=== PATIENT | female | born 1950 | race Caucasian/White ===

== ENCOUNTER 2018-11-26 07:53 | Day surgery (SDC) | payer MEDICARE, MEDICAID ==
[~2018-11-26 07:53] MED LIST: ACETAMINOPHEN 500 MG TABLET PO ONE; CEFAZOLIN 2 Gram 2 GM/50 ML BAG IVPB ONE; CELECOXIB 100 MG CAPSULE PO ONE; FAMOTIDINE 20MG TABLET PO ONE; METOCLOPRAMIDE 10 MG TABLET PO ONE; SCOPOLAMINE 1 PATCH TDSY TD ONE; VANCOMYCIN 1GM/200ML PREMIX 1 GM/200 ML PIGGYBACK IVPB ONE
[2018-11-26] MEDS ORDERED: PROPOFOL 10 MG/ML VIAL IV ONE (07:54)
[2018-11-26] MEDS ORDERED: DEXAMETHASONE 4 MG/ML 1ML VIAL IVP ONE (07:54)
[2018-11-26] MEDS ORDERED: LIDOCAINE 2% MDV (20MG/ML) 20ML VIAL IV ONE (07:54)
[2018-11-26] MEDS ORDERED: MIDAZOLAM HCL 2MG/2ML VIAL IV ONE (07:54)
[2018-11-26] MEDS ORDERED: ROPIVACAINE HCL (NAROPIN) /PF 5MG/ML 20ML VIAL IV ONE (07:54)
[2018-11-26 08:11] LABS: ABSOLUTE NEUTROPHIL COUNT 4.61; BASO % 0.9 % (0-6); EOS % 9.4 % (0-6); GRAN % 51.8 % (47-80); HEMATOCRIT 42.2 % (35.0-47.0); HEMOGLOBIN 12.9 gm/dl (11.6-16.0); LYMPH % 31.6 % (16-45); MEAN CELL VOLUME 86.8 fl (81-97); MEAN CORPUSCULAR HEMOGLOBIN 26.5 pg (27-33); MEAN CORPUSCULAR HGB CONC 30.6 g/dl (32-36); MEAN PLATELET VOLUME 11.1 fl (7.4-10.4); MONO % 6.3 % (0-9); PLATELET COUNT 223 K/uL (130-400); RED BLOOD COUNT 4.86 M/uL (3.80-5.40); RED CELL DISTRIBUTION WIDTH 16.3 % (11.5-14.5); WHITE BLOOD COUNT W/O DIFF 8.9 K/uL (4.2-12.2)
[2018-11-26] MEDS ORDERED: METOCLOPRAMIDE 10 MG TABLET PO PRN (08:17)
[2018-11-26] MEDS ORDERED: ACETAMINOPHEN 325 MG TAB PO PRN (08:17)
[2018-11-26] MEDS ORDERED: MAGNESIUM HYDROXIDE 30 ML UDC PO PRN (08:17)
[2018-11-26] MEDS ORDERED: AL HYDROX/MAG HYDROX 30ML UD PO PRN (08:17)
[2018-11-26] MEDS ORDERED: TRAMADOL HCL 50 MG TABLET PO PRN ×2 (08:17)
[2018-11-26] MEDS ORDERED: PROMETHAZINE HCL 25 MG TABLET PO PRN (08:17)
[2018-11-26] MEDS ORDERED: ACETAMINOPHEN W/ CODEINE 300MG/30MG TABLET PO PRN ×2 (08:17)
[2018-11-26] MEDS ORDERED: HYDROMORPHONE HCL 2 MG/ML VIAL IM PRN (08:17)
[2018-11-26] MEDS ORDERED: ONDANSETRON 4 MG ODT TABLET SL PRN (08:17)
[2018-11-26] MEDS ORDERED: HYDROCODONE/APAP 5/325MG TABLET PO PRN (08:17)
[2018-11-26] MEDS ORDERED: ACETAMINOPHEN W/ CODEINE 300MG/60MG TABLET PO PRN (08:17)
[2018-11-26] MEDS ORDERED: KETOROLAC 30 MG/ML VIAL IVP PRN (08:17)
[2018-11-26] MEDS ORDERED: DIPHENHYDRAMINE HCL 25 MG CAPSULE PO PRN (08:17)
[2018-11-26] MEDS ORDERED: NALOXONE 0.4 MG/1 ML VIAL IVP PRN (08:17)
[2018-11-26] MEDS ORDERED: BISACODYL 10 MG SUPP RC PRN (08:17)
[2018-11-26] MEDS ORDERED: 0.9 % SODIUM CHLORIDE 1000ML 1,000 ML IV ONE (08:40)
[2018-11-26 08:52] LABS: ABO GROUP O; ANTIBODY SCREEN NEGATIVE (NEGATIVE); RH TYPE NEGATIVE
[2018-11-26] MEDS ORDERED: TRANEXAMIC ACID 1,000 MG/10 ML ML IV ONE (10:42)
[2018-11-26] MEDS ORDERED: BUPIVACAINE 0.5% W/EPI MPF 30 ML VIAL SQ ONE (10:42)
[2018-11-26] MEDS ORDERED: TRANEXAMIC ACID 1,000 MG/10 ML ML IU ONE (10:42)
[2018-11-26] MEDS ORDERED: BUPIVACAINE LIPOSOME 266MG/20ML VIAL SQ ONE (10:42)
[2018-11-26] MEDS ORDERED: RINGERS SOLUTION,LACTATED 1,000 ML IV ONE (10:44)
[2018-11-26] MEDS ORDERED: NITROGLYCERIN 0.4MG SL TABLET #25 BTL SL PRN (12:24)
[2018-11-26] MEDS ORDERED: DEXTROSE 5 % AND 0.9 % NACL 1,000 ML IV PRN (12:30)
[2018-11-26] MEDS ORDERED: VANCOMYCIN HCL 500 MG in 0.9 % SODIUM CHLORIDE 100ML 100 ML IVPB SCH (13:00)
[2018-11-26] MEDS: ANORO (UMECLIDINIUM & VILANTEROL) 62.5MCG/25MCG INH IH SCH (13:19)
[2018-11-26] MEDS: GABAPENTIN 100 MG CAPSULE PO SCH ×2 (15:10→21:35)
--- NOTE | 2018-11-26 15:16 | Rehab Evaluation ---
Patient Information - Patient Information Diagnosis: L TKA revision Ordered Treatment: PT Evaluate and Treat Status: Initial Evaluation Surgery: Yes (L knee revision) Date of Surgery: 11/26/18 Past Medical/Surgical Hx: PAST MEDICAL/SURGICAL HISTORY Past Surgical History BILAT KNEE REPLACEMENTS HYST BLADDER LIFT TONSILS CTR RIGHT CARDIAC STENT 2017 X'S 1 SEVERAL HEART CATHS PMH - Respiratory Hx Bronchitis Yes: 2 WEEKS AGO RESOLVED W ABX AND STEROIDS Hx Chronic Obstructive Yes: CONTROLLED WITH INHALERS Pulmonary Disease (COPD) Hx Sleep Apnea No: HAD TESTING NEGATIVE Hx of URI Yes: RECENT BRONCHITIS Hx of SOB Yes: "ALWAYS" Hx of Oxygen Therapy Yes: 2-3 LITERS AT NIGHT PMH - Cardiovascular Hx Abnormal EKG Yes Hx Cardiac Catheterization Yes: SEVERAL Hx Chest Pain Yes: FREQUENTLY LAST NITRO 11-20-18 RELEIVED W 1 "HAPPENS WHEN I GET UPSET" Hx Congestive Heart Failure Yes Hx Edema Yes Hx Hypertension Yes: FAIR CONTROL WITH MEDS Hx Pacemaker/Defibrillator Yes: SEVERAL Hx Coronary Artery Disease Yes Hx Coronary Stent Yes: 2017 X'S 1 Exercise Tolerance Poor Hx Transient Ischemic Attacks Yes: POSSIBLY (TIA) PMH - Neuro Hx Neurological Disorders Yes Hx Headaches Yes Hx Neuropathy Yes: HANDS Hx Transient Ischemic Attacks Yes: POSSIBLY (TIA) Hx Weakness Yes Comment: POOR BALANCE PMH - GI Hx Gastrointestinal Disorders Yes Hx Gastroesophageal Reflux Yes: GOOD CONTROL WITH MEDS Hx Ulcer Yes: HX OF PMH - Hx Genitourinary Disorders Yes Hx Bladder Problem Yes: WEARS A PAD Hx Renal Disease Yes PMH - Endocrine Hx Endocrine Disorders Yes Hx Diabetes Yes: DX'D 17 YEARS AGO Hx of NIDDM Yes Comment: BLOOD SUGARS 130-145 A1C 6.7 PMH - Musculoskeletal Hx Musculoskeletal Disorders Yes Hx Arthritis Yes: "ALL OVER" PMH - Psych Hx Psychiatric Problems Yes Hx Anxiety Yes Hx Depression Yes Comment: SUICIDIAL IDEATION DENIES ATTEMPTS PMH - Hematology/Oncology Hx Hematology/Oncology No Disorders Premorbid Status: Detail (The patient was independent with all mobility prior to surgery.) Social History: Detail (The patient lives alone in a one story modular house with 3 steps at the enterance and 2 railings. The bathroom is equipped with: an elevated toilet, tub/shower combination, shower bench. Grab bars are present by both the toilet and tub. The patient has a front wheeled walker and a standard cane.) Precautions: [place], Fall, Other (WBAT on the L LE) - Time With Patient Total Time Spent With Patient (Min): 30 Treatment Procedures: Detail (Initial Evaluation, low complexity) Subjective Information - Subjective Information Per Patient (The patient has complaints of level 3 pain in L knee.) Objective Data - Mental Status Patient Orientation: Oriented x3 - Visual Perception Appears within normal limits for therapeutic activities - ROM Not within normal limits (The patient's L knee AROM is limited s/p surgery.) - Strength/Tone Not within normal limits (The patient's L LE strength was not tested however is WFL ie: patient was able to lift LE in and out of bed. The patient's R LE strength was WNL.) - Bed Mobility Independent (The patient was independent with supine to and from sit transfer.) - Transfers Independent (The patient was independent with sit to and from stand transfer.) - Balance Balance Sitting: Good Balance Standing: Good - Sensation Intact - Gait Detail (The patient ambulated with front wheeled walker a distance of 50 feet x 1 WBAT on L LE with supervision for safety.) Therapy Assessment - Therapy Assessment Detail (The patient was independent with bed mobility, transfers and supervision for safety with ambulation. Anticipate the patient will sucessfully complete inpatient PT goals in one to two sessions.) Problem List - Problem List Physical Therapy Problem List: Detail (1) Decreased L knee AROM s/p surgery 2) Decreased L LE strength) Goals - Goals Physical Therapy Goals: 1) The patient will ambulate with front wheeled walker independently a distance of 100 feet. 2) The patient will ambulate on stairs using proper technique with supervision for safety. 3) The patient will be independent with TKA HEP. Prognosis - Prognosis Good Plan - Plan Physical Therapy Plan: PT 1-2 sessions for gait training on levels and stairs and instruction in TKA HEP.
[2018-11-26] MEDS: HYDROCODONE/APAP 7.5/325MG TABLET PO PRN ×2 (15:58→21:09)
[2018-11-26] MEDS: DOCUSATE SODIUM 100 MG CAPSULE PO SCH ×2 (17:48→21:27)
[2018-11-26] MEDS: VANCOMYCIN 1GM/200ML PREMIX 1 GM/200 ML PIGGYBACK IVPB SCH (21:26)
[2018-11-26] MEDS: METFORMIN 500 MG TABLET PO SCH (21:28)
[2018-11-26] MEDS: PANTOPRAZOLE SODIUM 40 MG TABLET PO SCH (21:28)
[2018-11-26] MEDS: DULOXETINE HCL 30 MG CAPSULE.DR PO SCH (21:28)
[2018-11-26] MEDS ORDERED: GLIPIZIDE 5 MG TABLET PO SCH (22:00)
[2018-11-26] MEDS ORDERED: METOPROLOL SUCC 50 MG TABLET PO SCH (22:00)
[2018-11-26] MEDS ORDERED: ATORVASTATIN 20 MG TABLET PO SCH (22:00)
[2018-11-26] MEDS ORDERED: MIRTAZAPINE 15 MG TABLET PO SCH (22:00)
[2018-11-26] MEDS ORDERED: ISOSORBIDE MONONITRATE 60 MG TAB.ER.24H PO SCH (22:00)
[2018-11-26] MEDS: HYDROMORPHONE HCL 2 MG/ML VIAL IM PRN ×2 (22:48→22:51)
--- NOTE | 2018-11-27 08:28 | Rehab Evaluation ---
Patient Information - Patient Information Diagnosis: L TKA revision Ordered Treatment: OT Evaluate and Treat Surgery: Yes (L knee revision) Date of Surgery: 11/26/18 Past Medical/Surgical Hx: PAST MEDICAL/SURGICAL HISTORY Past Surgical History BILAT KNEE REPLACEMENTS HYST BLADDER LIFT TONSILS CTR RIGHT CARDIAC STENT 2017 X'S 1 SEVERAL HEART CATHS PMH - Respiratory Hx Bronchitis Yes: 2 WEEKS AGO RESOLVED W ABX AND STEROIDS Hx Chronic Obstructive Yes: CONTROLLED WITH INHALERS Pulmonary Disease (COPD) Hx Sleep Apnea No: HAD TESTING NEGATIVE Hx of URI Yes: RECENT BRONCHITIS Hx of SOB Yes: "ALWAYS" Hx of Oxygen Therapy Yes: 2-3 LITERS AT NIGHT PMH - Cardiovascular Hx Abnormal EKG Yes Hx Cardiac Catheterization Yes: SEVERAL Hx Chest Pain Yes: FREQUENTLY LAST NITRO 11-20-18 RELEIVED W 1 "HAPPENS WHEN I GET UPSET" Hx Congestive Heart Failure Yes Hx Edema Yes Hx Hypertension Yes: FAIR CONTROL WITH MEDS Hx Pacemaker/Defibrillator Yes: SEVERAL Hx Coronary Artery Disease Yes Hx Coronary Stent Yes: 2017 X'S 1 Exercise Tolerance Poor Hx Transient Ischemic Attacks Yes: POSSIBLY (TIA) PMH - Neuro Hx Neurological Disorders Yes Hx Headaches Yes Hx Neuropathy Yes: HANDS Hx Transient Ischemic Attacks Yes: POSSIBLY (TIA) Hx Weakness Yes Comment: POOR BALANCE PMH - GI Hx Gastrointestinal Disorders Yes Hx Gastroesophageal Reflux Yes: GOOD CONTROL WITH MEDS Hx Ulcer Yes: HX OF PMH - Hx Genitourinary Disorders Yes Hx Bladder Problem Yes: WEARS A PAD Hx Renal Disease Yes PMH - Endocrine Hx Endocrine Disorders Yes Hx Diabetes Yes: DX'D 17 YEARS AGO Hx of NIDDM Yes Comment: BLOOD SUGARS 130-145 A1C 6.7 PMH - Musculoskeletal Hx Musculoskeletal Disorders Yes Hx Arthritis Yes: "ALL OVER" PMH - Psych Hx Psychiatric Problems Yes Hx Anxiety Yes Hx Depression Yes Comment: SUICIDIAL IDEATION DENIES ATTEMPTS PMH - Hematology/Oncology Hx Hematology/Oncology No Disorders Premorbid Status: Detail (The patient was independent with all mobility, meal prep, laundry and home mgmt tasks prior to surgery.) Social History: Detail (The patient lives alone in a one story modular house with 3 steps at the entrance and 2 railings. The bathroom is equipped with: an elevated toilet, tub/shower combination, shower bench. Grab bars are present by both the toilet and tub. The patient has a front wheeled walker and a standard cane.) Precautions: [place], Fall, Other (WBAT on the L LE) - Time With Patient Total Time Spent With Patient (Min): 40 Treatment Procedures: Detail (OT eval low complexity) Subjective Information - Subjective Information Per Patient Objective Data - Pain Pain Present: Yes (1-2) - Mental Status Patient Orientation: Oriented x3 - Visual Perception Appears within normal limits for therapeutic activities - ROM Within normal limits (Chip UE AROM WNL) - Strength/Tone Within normal limits (Chip UE strength WNL) - Coordination Appears within normal limits for therapeutic activities - Bed Mobility Independent (Ind with supine to sit) - Transfers Independent (Ind with sit to stand from EOB and chair heights.) - Balance Balance Sitting: Good Balance Standing: Good - Sensation Intact - Gait Detail (Pt ambulating in room with 2 wheeled walker and supervision.) - ADL's/IADL's Detail (Pt educated and able to demonstrate learning of modified LE dressing techniques including doffing slipper socks and donning angelique sock (with assist), shorts and tennis shoes. Pt educated re: kitchen and shower modifications, she was able to verbalize understanding.) Therapy Assessment - Therapy Assessment Detail (Pt is Ind with modified LE dressing techniques.) Problem List - Problem List Physical Therapy Problem List: Detail (1) Decreased L knee AROM s/p surgery 2) Decreased L LE strength) Occupational Therapy Problem List: Detail (No current IP OT problems identified.) Goals - Goals Physical Therapy Goals: 1) The patient will ambulate with front wheeled walker independently a distance of 100 feet. 2) The patient will ambulate on stairs using proper technique with supervision for safety. 3) The patient will be independent with TKA HEP. Occupational Therapy Goals: No cuurent IP OT goals identified. Prognosis - Prognosis Good Plan - Plan Physical Therapy Plan: PT 1-2 sessions for gait training on levels and stairs and instruction in TKA HEP. Occupational Therapy Plan: No further IP OT recommended. Thank you for this referral.
[2018-11-27] MEDS: VANCOMYCIN 1GM/200ML PREMIX 1 GM/200 ML PIGGYBACK IVPB SCH (09:17)
[2018-11-27] MEDS: HYDROCODONE/APAP 5/325MG TABLET PO PRN ×2 (09:18→11:12)
[2018-11-27] MEDS ORDERED: ASPIRIN 81 MG TABEC PO SCH (10:00)
[2018-11-27] MEDS ORDERED: LISINOPRIL 5 MG TABLET PO SCH (10:00)
[2018-11-27] MEDS ORDERED: FUROSEMIDE 40 MG TABLET PO SCH (10:00)
[2018-11-27] MEDS ORDERED: VENLAFAXINE ER 75 MG CAPSULE PO SCH (10:00)
[2018-11-27] MEDS ORDERED: TRIAMTERENE 37.5/HCTZ 25 CAPSULE PO SCH (10:00)
[2018-11-27] MEDS: DOCUSATE SODIUM 100 MG CAPSULE PO SCH (10:51)
[2018-11-27] MEDS: GABAPENTIN 100 MG CAPSULE PO SCH (10:52)
[2018-11-27] MEDS: DULOXETINE HCL 30 MG CAPSULE.DR PO SCH (10:53)
[2018-11-27] MEDS: METFORMIN 500 MG TABLET PO SCH (10:53)
[2018-11-27] MEDS: PANTOPRAZOLE SODIUM 40 MG TABLET PO SCH (10:54)
--- NOTE | 2018-11-27 11:32 | Physical Therapy Tx Note ---
Physical Therapy Tx Note - Treatment Note Tolerated: Good Total Time Spent With Patient: 20 Physical Therapy Tx Note: Detail (The patient was up in chair when PT arrived. The patient ambulated with front wheeled walker WBAT on the L LE a distance of 134 feet x 1 independently. The patient ambulated on steps with use of one railing using proper technique with supervision for safety. The patient completed the following TKA HEP: seated heel slides, ankle pumps, quad sets, hamstring sets, gluteal sets, SLR. The patient has met all inpatient PT goals and is discharged from inpatient PT at this time.) Physical Therapy Problem List: Detail (1) Decreased L knee AROM s/p surgery 2) Decreased L LE strength) Physical Therapy Goals: 1) The patient will ambulate with front wheeled walker independently a distance of 100 feet. ( GOAL MET). 2) The patient will ambulate on stairs using proper technique with supervision for safety.(GOAL MET). 3) The patient will be independent with TKA HEP.(GOAL MET) Physical Therapy Plan: The patient met all inpatient PT goals and is to have Home PT.
[2018-11-27] MEDS: ANORO (UMECLIDINIUM & VILANTEROL) 62.5MCG/25MCG INH IH SCH (12:09)
--- NOTE | 2018-12-06 10:35 | Operative Note ---
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 OPERATION: 1. EXTENSIVE DEBRIDEMENT OF MEDULLOSIS AND SYNOVECTOMY. 2. EXCHANGE OF WORN TIBIAL POLY INSERT. 3. PATELLAR ARTHROPLASTY. SURGEON: Bal May M.D. ANESTHESIA: Spinal COMPLICATIONS: None. ESTIMATED BLOOD LOSS: Minimal. TOURNIQUET TIME: Approximately 60 minutes. OPERATIVE FINDINGS: Severe medullosis and synovitis throughout the knee. Completely worn tibial poly insert projected posteromedially, almost worn down to metal and severe patellar erosion sclerotic bone. COMPONENTS PLACED: A Edgar triathlon size 3 tibia x 11 mm thick insert and a 32 mm oval centric patellar replacement. INDICATIONS: This is a 68-year-old female who is over 20 years status post total knee arthroplasty. She did not have the patellar replaced at the time, she developed persistent pain in the knee. She had x-rays and preoperative exam and x-rays showed a very thin joint space, likely worn tibial poly insert. The femoral component and tibial component, however, were very well fixed and she did not have her patellar replaced and there is erosion there and she was scheduled for a procedure. I explained all risks and benefits in detail for the diagnosis and procedure including, but not limited to infection, nerve injury, vessel injury, persistent pain, stiffness, numbness, tinging in the knee, periprosthetic fracture, need for resection arthroplasty if components become infected or loosen, nerve injury, vessel injury, blood clot, need for anticoagulation, risks associated with the medications, need for further procedures and all of her questions were answered. Rehab course was outlined. She agreed to proceed. PROCEDURE: The patient was brought to the Operating Room, placed in the supine position, prepped for surgery. Spinal anesthesia was induced. The left lower extremity and knee were prepped and draped in sterile fashion. The left knee was prepped again with ChloraPrep after it was draped. Intraoperative timeout was performed. Next the leg was exsanguinated with Esmarch. No tourniquet was used. The knee was flexed. Next we used the previous entered incision, we infiltrated that with 0.5% Marcaine with epinephrine, tranexamic acid and Exparel mixture. The skin and subcutaneous tissues were dissected down to the capsule and incised the capsule. We released the capsule medially and subperiosteally and then released some of the patellar tendon and retropatellar fat pad. She had severe medullosis immediately evident. Next we used the Aquamantys and clearly cauterized the superficial subcutaneous and deep tissues and capsule areas. Next we did an extensive resection, synovectomy of all three compartments, medial lateral gutters, suprapatellar area removing this extensive synovitis and medullosis again using an unused Aquamantys_. Next we flexed the knee and removed the tibial poly insert without difficulty, it was severely worn and pitted particularly posteromedially. We irrigated copiously and removed any scarring posteriorly and then did a trial tibial poly insert and best combination range of motion with 11 mm thick poly insert to allow for 2-3 mm varus valgus laxity, and symmetric flexion and extension. Next we then cauterized again, we injected the deep capsule layers in the medial and lateral periosteum with our mixture again and then inserted the real tibial poly insert and tapped it down to verify it was interlocked. Now attention was turned to the patella with the knee in extension we expected the patella to have severely sclerotic bone, however, there is felt to be enough thickness of the patella to perform arthroplasty here. Next we cut the patella by hand leaving as much thickness of the bone as possible due to the erosion over the years and measured initially 22 mm thick and we cut it down to about 18 mm. Next we incised it to be 35, medialized as much as possible, drilled 3 peg holes and placed the trial patella insert and did a trial range of motion. The patella tracked nicely handsfree, full extension and flexion to 130-40 degrees, again symmetric flexion/extension gap. Next we mixed cement, irrigated the patella copiously, drilled some small drill holes in the sclerotic bone and then pre-coated both surfaces with cement and packed down the real patella component and clamped it down and removed the excess cement until it hardened. We irrigated it again and did a trial range of motion , it was irrigated. Next we used the Aquamantys again subcutaneous and deep and then closed in flexion using running #2 quill suture, the capsule and vastus split, again irrigated, closed skin with 2-0 buried Vicryl and a LAURENT dressing was applied again. The patient tolerated the procedure well. No intraoperative complications. Sponge, needle, and blade counts correct. Recovery Room stable, neurovascular intact. Will discharge today or tomorrow and follow-up in two weeks. JOB NUMBER: [id number] MTDD
== END 2018-11-27 11:58 | disposition home or self-care (01) ==
LOC: SUR 07:53 → MEDSURG 12:16 → SUR 11-27 11:58
PROVIDERS: ATTEND Orthopaedic Surgery
DX: T84.063A Wear of articular bearing surface of internal prosthetic left knee joint, initial encounter (principal); Z96.652 Presence of left artificial knee joint; I10 Essential (primary) hypertension; E78.00 Pure hypercholesterolemia, unspecified; E11.9 Type 2 diabetes mellitus without complications; K21.9 Gastro-esophageal reflux disease without esophagitis; I25.10 Atherosclerotic heart disease of native coronary artery without angina pectoris; J44.9 Chronic obstructive pulmonary disease, unspecified; Z86.73 Personal history of transient ischemic attack (TIA), and cerebral infarction without residual deficits; Z95.5 Presence of coronary angioplasty implant and graft; Z68.41 Body mass index [BMI] 40.0-44.9, adult; M17.12 Unilateral primary osteoarthritis, left knee
CPT/HCPCS: 27437; 27441; 01392; 64447; 85025; 36416; 82948; 88304; 86900; 86901; 86850; 94640; 76942; C1776 ×2; J1885; J1170; J0690; C9290; J2795; J3370 ×2; J7030; J7120